=== PATIENT | male | born 1950 | race Caucasian/White ===

== ENCOUNTER 2024-08-02 07:29 | Day surgery (SDC) | payer MEDICARE ==
[2024-07-27 12:28] VITALS: BP 136/80; PULSE 60; RESP 16; TEMP 97.8
[2024-07-27 12:29] LABS: BASOPHILS # (AUTO) 0.07 K/uL (0.00-0.20); BASOPHILS % (AUTO) 1.4 % (0.0-5.0); EOSINOPHILS # (AUTO) 0.39 K/uL (0.00-0.70); EOSINOPHILS % (AUTO) 7.8 % (0.0-8.0); HEMATOCRIT 43.5 % (42-54); IMMATURE GRANULOCYTE ABSOLUTE 0.01 K/uL (0-1); LYMPHOCYTES # (AUTO) 1.1 K/uL (1.0-4.8); LYMPHOCYTES % (AUTO) 21.5 % (21.0-51.0); MEAN CORPUSCULAR HEMOGLOBIN 28.3 pg (27.0-33.0); MEAN CORPUSCULAR HGB CONC 33.3 g/dL (32.0-36.0); MONOCYTES # (AUTO) 0.6 K/uL (0.1-1.0); MONOCYTES % (AUTO) 12.7 % (3.0-13.0); NEUTROPHILS # (AUTO) 2.8 K/uL (1.8-7.7); NEUTROPHILS % (AUTO) 56.4 % (40.0-77.0); PLATELET COUNT (AUTO) 219 K/uL (130-400); RED BLOOD CELL COUNT(AUTO) 5.12 MIL/uL (4.50-6.20); RED CELL DISTRIBUTION WIDTH 14.3 % (11.0-15.5)
[2024-07-27 12:38] LABS: CREATININE 0.9 mg/dL (0.5-1.3); INR 1.01 (0.85-1.15); POTASSIUM 4.3 mmol/L (3.5-5.1); PROTHROMBIN TIME 10.9 SEC (9.6-11.6)
[2024-07-27 12:40] LABS: PARTIAL THROMBOPLASTIN TIME 28.8 SEC (26.3-35.5)
[2024-07-27 12:54] LABS: ADD UA MICROSCOPIC YES; APPEARANCE,URINE CLEAR (CLEAR); BILIRUBIN,URINE NEGATIVE (NEGATIVE); COLOR,URINE YELLOW (YELLOW); GLUCOSE, URINE (UA) NEGATIVE (NEGATIVE); KETONES,URINE NEGATIVE (NEGATIVE); LEUKOCYTE ESTERASE ,URINE NEGATIVE Leu/uL (NEGATIVE); NITRATE,URINE NEGATIVE (NEGATIVE); OCCULT BLOOD,URINE NEGATIVE (NEGATIVE); PH,URINE 6.5 (5.0-8.0); PROTEIN,URINE 10 mg/dL (NEGATIVE); UROBILINOGEN,URINE 0.2 mg/dL (0.2-1.0)
--- NOTE | 2024-07-27 13:31 | HMCIMG ---
CHEST 1VW HISTORY: Preop COMPARISON: None FINDINGS: A frontal projection of the chest was obtained. Prominent interstitial markings are seen with possible superimposed infiltrates. The heart is normal in size. Degenerative changes are seen. No evidence of aortic calcification is seen. IMPRESSION: 1. Prominent interstitial markings are seen with possible superimposed infiltrates.
[2024-07-27 13:34] LABS: BACTERIA,URINE RARE /HPF (None Seen); MUCUS,URINE RARE LPF (None Seen)
--- NOTE | 2024-07-28 19:46 | EKG ---
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
--- NOTE | 2024-08-01 16:09 | NUR ---
REPORT REPORTED CXR TO DR GRADY/SARABJIT. OK TO PROCEED
[~2024-08-02] VITALS: Ht 170.2 cm; Wt 75.8 kg
[2024-08-02] VITALS (9 sets, daily range): BP systolic 109–131; BP diastolic 63–82; PULSE 65–85; RESP 15–18; TEMP 97.3–97.8
[~2024-08-02 07:29] MED LIST: ALEN70TA80 PO; ASPI-1197 PO; ATOR40TA71 PO; CLOP75TA32 PO; METO25TA6 PO; TAMS-1 PO
[2024-08-02] MEDS: GENTAmicin 80 MG/NS 100 ML PB 100 ML IV ONE (08:16)
[2024-08-02] MEDS: cefTRIAXone 1G VIAL ONE (08:16)
[2024-08-02] MEDS: SCOPOLAMINE HYDROBROMIDE 1 EACH ADH..PATCH TD ONE (08:17)
[2024-08-02] MEDS: ondanSETRON 4MG INJ ONE (08:17)
[2024-08-02] MEDS ORDERED: FENTanyl CITRate PF 50 MCG/1 ML 2ML VIAL ONE ×2 (08:18→09:26)
[2024-08-02] MEDS ORDERED: MIDAZOLAM HCL 1 MG/ML 2ML VIAL ONE (08:18)
[2024-08-02] MEDS ORDERED: LIDOCAINE PF 100MG/5ML (2%) SYRINGE 5ML ONE (08:18)
[2024-08-02] MEDS ORDERED: proPOFol 10 MG/ML 20ML VIAL IV ONE ×2 (08:18→09:21)
[2024-08-02] MEDS ORDERED: rocuRONium bROMide 10MG/1ML 5ML VL ONE (08:22)
[2024-08-02] MEDS: LACTATED RINGERS 1000ML 1,000 ML IV ONE (08:29)
[2024-08-02] MEDS ORDERED: phenylEPHRINE HCL 10 MG/ML 1ML VIAL IV ONE (09:18)
[2024-08-02] MEDS ORDERED: ePHEDrine SULFate 50 MG/ML AMPULE ONE (09:29)
--- NOTE | 2024-08-02 09:47 | HMCIMG ---
US TRANSRECTAL REASON: enlarged prostate. COMPARISON: None TECHNIQUE: Transrectal images of the prostate gland were obtained for biopsy purpose performed by referring physician. FINDINGS: Please see procedure report by referring physician. IMPRESSION: Intraoperative films.
--- NOTE | 2024-08-02 09:58 | OP ---
DATE OF PROCEDURE: 08/02/2024 UROLOGIC OPERATIVE REPORT PREOPERATIVE DIAGNOSES: Elevated PSA, family history of prostate cancer. POSTOPERATIVE DIAGNOSES: Elevated PSA, family history of prostate cancer. OPERATION PERFORMED: Transrectal ultrasound, transrectal ultrasound-guided prostate needle biopsy. ANESTHESIA: General. DESCRIPTION OF PROCEDURE: The patient is a 73-year-old white male with a history of elevated PSA range of 7. The patient has a family history of prostate cancer. The patient has opted for a prostate needle biopsy. The risks of surgery were discussed to include bleeding, infection and pain. The patient reports understanding and agrees to proceed. The patient underwent a typical prostate biopsy bowel prep. The patient was given preoperative antibiotics. The patient was taken back to the operating room where general anesthesia was given. The patient was positioned in a left lateral decubitus position. A transrectal ultrasound was subsequently performed. The patient's prostate volume was 51 mL. There were no hypoechoic areas noted. There were calcifications noted in the bilateral central zone near the border with the peripheral zone. The prostatic capsule was normal as well as the seminal vesicles. At this time, 15 prostate biopsies were performed in a 12-core template. There were no complications during these biopsies. The patient was subsequently taken to the recovery room in stable condition. The patient is to follow up in approximately 10 days for the results of his pathology. TID: [id number] RECEIPT: [id number]
== END 2024-08-02 10:55 | disposition home or self-care (01) ==
LOC: DAH 07:29
PROVIDERS: ATTEND Urology
DX: R97.20 Elevated prostate specific antigen [PSA] (principal); N41.0 Acute prostatitis; N41.1 Chronic prostatitis; N40.0 Benign prostatic hyperplasia without lower urinary tract symptoms; I10 Essential (primary) hypertension; I25.10 Atherosclerotic heart disease of native coronary artery without angina pectoris; K21.9 Gastro-esophageal reflux disease without esophagitis; J45.909 Unspecified asthma, uncomplicated; Z79.01 Long term (current) use of anticoagulants; Z79.899 Other long term (current) drug therapy
CPT/HCPCS: 80048; 85025; 85610; 85730; 87086; 81001; 36415; 71045; 93005; 55700; 88305; 76872; A6260; J7120; J3010 ×2; J3490 ×2; J2003; J0696; J2250; J2704; J2405; J2371; J1580; A4215 ×2; A4649; A4223; A4222; A4221; A4600